=== PATIENT | female | born 1955 | race Caucasian/White ===

== ENCOUNTER 2022-04-22 20:02 | Inpatient (IN) ==
[2022-04-22] MEDS ORDERED: SODIUM CHLORIDE 0.9% 500 ML IV STA (20:57)
[2022-04-22 22:07] LABS: Basophils % 0.1 % (0.0-0.8); Hematocrit 43.5 VOL% (35.7-47.0); Hemoglobin 14.3 GM/DL (12.0-16.0); Immature Granulocytes % 0.6 %; Immature Granulocytes Absolute 0.05 #; Lymphocytes # 0.4 10*3/uL (1.4-4.0); Lymphocytes % 4.4 % (21.3-54.2); Mean Corpuscular HGB Conc 32.9 GM/DL (32-36); Mean Corpuscular Volume 100.5 FL (87-102); Monocytes # 0.2 10*3/uL (0.11-0.8); Monocytes % 2.1 % (1.7-12.7); Neutrophils % 92.8 % (38.7-73.9); Platelet Count 143 T/CUMM (130-400); Red Blood Count 4.33 MC/CUMM (3.8-5.5); White Blood Count 8.2 T/CUMM (4-12)
[2022-04-22 22:25] LABS: Albumin 3.2 G/DL (3.4-5.0); Bilirubin,Total 1.3 MG/DL (0.20-1.00); Calcium 8.9 MG/DL (8.5-10.1); Osmolality,Calculated 285.1 MOS/KG (273-304); Potassium 4.4 MMOL/L (3.5-5.1)
[2022-04-22] MEDS ORDERED: hydrALAZINE 20 MG/1 ML VIAL IV PRN (22:42)
[2022-04-22] MEDS ORDERED: ZALEPLON 5 MG CAPSULE PO PRN (22:42)
[2022-04-22] MEDS ORDERED: NICOTINE 21 MG/24 HR PATCH TRANSDERM PRN (22:42)
[2022-04-22] MEDS ORDERED: diphenhydrAMINE CAP 25 MG CAPSULE PO PRN (22:42)
[2022-04-22] MEDS ORDERED: ONDANSETRON 4 MG/2 ML VIAL IV PRN (22:42)
[2022-04-22] MEDS ORDERED: MORPHINE 2 MG/1 ML SYRINGE IV PRN (22:42)
[2022-04-22] MEDS ORDERED: guaiFENesin/DM ER 600-30 MG TABLET PO PRN (22:42)
[2022-04-22] MEDS ORDERED: ALBUTEROL/IPRATROPIUM 3 ML NEB RESP TX PRN (22:42)
[2022-04-22 22:45] LABS: Lymphocytes 6 % (20-55); Platelet Estimate Adequate; Total Cells Counted 100
[2022-04-22] MEDS: cefTRIAXone 1,000 MG in SODIUM CHLORIDE 0.9% 100 ML IV SCH (23:53)
[2022-04-23] MEDS: SODIUM CHLOR 0.9% KCL 40 MEQ 40 MEQ/1,000 ML BAG IV SCH ×2 (02:09→16:45)
[2022-04-23] MEDS: metroNIDAZOLE INJ 500 MG/100 ML PREMIX IV SCH ×3 (02:10→16:45)
[2022-04-23] MEDS: amLODIPine 10 MG TABLET PO ONE ×2 (02:10→04:33)
[2022-04-23 05:24] LABS: Basophils % 0.1 % (0.0-0.8); Hematocrit 36.7 VOL% (35.7-47.0); Hemoglobin 12.5 GM/DL (12.0-16.0); Immature Granulocytes % 1.1 %; Immature Granulocytes Absolute 0.08 #; Lymphocytes # 0.5 10*3/uL (1.4-4.0); Lymphocytes % 7.5 % (21.3-54.2); Mean Corpuscular HGB Conc 34.1 GM/DL (32-36); Mean Corpuscular Volume 100.3 FL (87-102); Mean Platelet Volume 9.7 FL (9.6-12.0); Monocytes # 0.1 10*3/uL (0.11-0.8); Monocytes % 1.8 % (1.7-12.7); Neutrophils % 89.5 % (38.7-73.9); Platelet Count 145 T/CUMM (130-400); Red Blood Count 3.66 MC/CUMM (3.8-5.5); White Blood Count 7.1 T/CUMM (4-12)
[2022-04-23 05:51] LABS: Albumin 2.8 G/DL (3.4-5.0); Bilirubin,Total 0.6 MG/DL (0.20-1.00); Calcium 8.2 MG/DL (8.5-10.1); Potassium 3.8 MMOL/L (3.5-5.1); Total Protein 5.3 G/DL (6.4-8.2)
[2022-04-23] MEDS: LEVOTHYROXINE 88 MCG TABLET PO SCH (06:30)
[2022-04-23] MEDS: amLODIPine 10 MG TABLET PO SCH (12:00)
[2022-04-23] MEDS: ATORVASTATIN 40 MG TABLET PO SCH (12:00)
[2022-04-23] MEDS: SPIRONOLACTONE 25 MG TABLET PO SCH (12:00)
[2022-04-23] MEDS: PANTOPRAZOLE 40 MG VIAL IV SCH (12:01)
[2022-04-23] MEDS ORDERED: BUDESONIDE 3 MG CAPSULE PO SCH (21:00)
[2022-04-23] MEDS: cefTRIAXone 1,000 MG in SODIUM CHLORIDE 0.9% 100 ML IV SCH (21:53)
[2022-04-24] MEDS: metroNIDAZOLE INJ 500 MG/100 ML PREMIX IV SCH ×2 (00:30→09:39)
[2022-04-24] MEDS: LEVOTHYROXINE 88 MCG TABLET PO SCH (05:50)
[2022-04-24 06:25] LABS: PT Patient Result 11.4 SECS (10.1-12.1)
[2022-04-24 06:43] LABS: Albumin 2.8 G/DL (3.4-5.0); Bilirubin,Direct 0.13 MG/DL (0.0-0.20); Bilirubin,Indirect 0.4 MG/DL (0.0-1.0); Bilirubin,Total 0.5 MG/DL (0.20-1.00); Total Protein 5.4 G/DL (6.4-8.2)
[2022-04-24] MEDS ORDERED: INDOMETHACIN SUPP 50 MG SUPP RECTAL ONE (08:00)
[2022-04-24] MEDS ORDERED: LACTATED RINGERS 1,000 ML IV SCH (08:00)
[2022-04-24] MEDS: SODIUM CHLOR 0.9% KCL 40 MEQ 40 MEQ/1,000 ML BAG IV SCH (09:39)
[2022-04-24] MEDS: PANTOPRAZOLE 40 MG VIAL IV SCH (09:39)
[2022-04-24] MEDS ORDERED: propofoL 200 MG/20 ML VIAL IV ONE (12:05)
[2022-04-24] MEDS ORDERED: ROCURONIUM 50 MG/5 ML VIAL IV ONE (12:05)
[2022-04-24] MEDS ORDERED: ONDANSETRON 4 MG/2 ML VIAL ONE (12:05)
[2022-04-24] MEDS ORDERED: fentaNYL 100 MCG/2 ML VIAL ONE (12:05)
[2022-04-24] MEDS ORDERED: LIDOCAINE 2% 5 ML VIAL ONE (12:05)
[2022-04-24] MEDS ORDERED: PHENYLEPHRINE 1 MG/10 ML SYRINGE IV ONE (12:41)
[2022-04-24] MEDS ORDERED: GLYCOPYRROLATE 0.4 MG/2 ML VIAL ONE (12:42)
[2022-04-24] MEDS ORDERED: NEOSTIGMINE 10 MG/10 ML VIAL ONE (12:42)
[2022-04-24] MEDS ORDERED: ePHEDrine 50 MG/ML VIAL ONE (12:49)
[2022-04-24] MEDS: ATORVASTATIN 40 MG TABLET PO SCH (14:33)
[2022-04-24] MEDS: amLODIPine 10 MG TABLET PO SCH (14:33)
[2022-04-24] MEDS: SPIRONOLACTONE 25 MG TABLET PO SCH (14:33)
[2022-04-24 16:49] VITALS: BP 151/78
== END 2022-04-24 17:34 | disposition home or self-care (01) | DRG 445 ==
LOC: N.ED 20:02 → SUATTDRO 22:42 → N.EDINP 22:42 → N.2E 04-23 00:34
PROVIDERS: ADMIT Hospitalist; ATTEND Internal Medicine Geriatric Medicine